=== PATIENT | male | born 1985 | race American Indian/Alaskan Native ===

== ENCOUNTER 2017-04-30 08:50 | Emergency (ER) | payer SELFPAY ==
[2017-04-30 09:06] VITALS: BP 127/81
[2017-04-30] MEDS ORDERED: FUL-GLO OP ONE (09:56)
[2017-04-30] MEDS ORDERED: TETRACAINE 0.5% OD ONE (09:57)
--- NOTE | 2017-04-30 12:09 | Emergency Department Report ---
Entered by VICKIE FARRELL, acting as scribe for KARLY PHILLIPS PA. ED Eye Problem HPI - General Chief complaint: Eye Problems Stated complaint: RIGHT EYE PAIN Time Seen by Provider: 04/30/17 09:54 Source: patient Mode of arrival: Ambulatory Limitations: No Limitations - History of Present Illness Initial comments: 32 y/o male with a PMHx of asthma and spontaneous pnuemothorax presents to the ED c/o gradually worsening right eye pain that began this morning. Rates pain a 6/10 in severity, which he describes as burning in quality. Aggravated with rubbing eye and alleviated with nothing. Associated symptom include foreign body sensation, but he denies blurry vision, right eye injury/trauma, foreign body getting into right eye, fever, chills, nausea, vomiting, and headache. Patient states he did not wake up with crust surrounding his right eye this morning. Notes that he wears glasses regularly. UTD with tetanus. DOUGLAS ALVARADO chief complaint: eye pain -: This morning Onset Description: gradual, unknown, awoke with symptoms Location: right eye Place: home If Injury: none Eye Symptoms: pain, foreign body sensation Severity scale (0 -10): 6 If Pain, Quality: burning Consistency: constant Associated Symptoms: none. denies: headache, neck pain, nausea/vomiting, cough , rhinorrhea, fever, shortness of breath Treatments Prior to Arrival: irrigated eye (right eye) - Related Data Patient Tetanus UTD: Yes Previous Rx's Medication Instructions Recorded Last Taken Type oxyCODONE /ACETAMINOPHEN [Percocet 1 tab PO Q4H PRN #30 tablet 08/03/14 Unknown Rx 5/325 mg] Cyclobenzaprine [Flexeril] 10 mg PO TID PRN #20 tablet 05/01/16 Unknown Rx Ibuprofen [Motrin 800 MG tab] 800 mg PO Q8HR PRN #30 tablet 05/01/16 Unknown Rx Gentamicin 0.3% Ophth Soln 2 drops OD Q8H #1 bottle 04/30/17 Unknown Rx Allergies Allergy/AdvReac Type Severity Reaction Status Date / Time No Known Allergies Allergy Verified 05/18/14 05:58 ED Review of Systems Comment: All other systems reviewed and negative Constitutional: denies: chills, fever Eyes: eye pain (right), other (patient believed that he got something in his eye with foreign body sensation to right eye). denies: eye discharge, vision change ENT: denies: ear pain, throat pain Respiratory: denies: cough, orthopnea, shortness of breath, SOB with exertion, SOB at rest, stridor, wheezing Cardiovascular: denies: chest pain, palpitations, dyspnea on exertion, orthopnea , edema, syncope, paroxysmal nocturnal dyspnea Endocrine: no symptoms reported Gastrointestinal: denies: abdominal pain, nausea, vomiting, diarrhea Musculoskeletal: denies: back pain, joint swelling, arthralgia Skin: denies: rash, lesions Neurological: denies: headache, weakness, numbness, paresthesias Psychiatric: denies: anxiety, depression Hematological/Lymphatic: denies: easy bleeding, easy bruising ED Past Medical Hx - Past Medical History Previous Medical History?: Yes Hx Hypertension: No Hx Congestive Heart Failure: No Hx Diabetes: No Hx Sickle Cell Disease: No Hx Asthma: Yes (No flare in 2 yrs, no inhaler use) Hx COPD: No Additional medical history: spontaneous pneumothorax - Surgical History Past Surgical History?: No - Family History Family history: no significant - Social History Smoking Status: Current Some Day Smoker Substance Use Type: None - Medications Home Medications: Home Medications Medication Instructions Recorded Confirmed Last Taken Type oxyCODONE /ACETAMINOPHEN [Percocet 1 tab PO Q4H PRN #30 tablet 08/03/14 Unknown Rx 5/325 mg] Cyclobenzaprine [Flexeril] 10 mg PO TID PRN #20 tablet 05/01/16 Unknown Rx Ibuprofen [Motrin 800 MG tab] 800 mg PO Q8HR PRN #30 tablet 05/01/16 Unknown Rx Gentamicin 0.3% Ophth Soln 2 drops OD Q8H #1 bottle 04/30/17 Unknown Rx ED Physical Exam - General Limitations: No Limitations General appearance: alert, in no apparent distress - Head Head exam: Present: atraumatic, normocephalic, normal inspection - Eye Eye exam: Present: normal appearance, PERRL, EOMI, other (mild erythema right sclera). Absent: scleral icterus, conjunctival injection, nystagmus, periorbital swelling, periorbital tenderness Pupils: Present: normal accommodation - Expanded Eye Exam Expanded Eyelids: Normal Inspection: Right (normal laterally) Pupils: Regular, Round: Bilateral, Reactive: Bilateral Sclera/Conjunctival: Normal Inspection: Bilateral Anterior chamber: Normal Inspection: Bilateral Posterior chamber: Normal Inspection: Bilateral, Papilledema: Bilateral, Hemorrhage: Bilateral, Retinal Detachment: Bilateral, AV Nicking: Bilateral Visual acuity (R) = 20/: 20 (20/20 both eyes) Visual acuity (L) = 20/: 20 With correction: No - ENT ENT exam: Present: normal exam, normal orophraynx, mucous membranes moist, TM's normal bilaterally, normal external ear exam - Expanded ENT Exam Expanded Ear exam: Present: normal external inspection Mouth exam: Present: normal external inspection, tongue normal. Absent: drooling, trismus, muffled voice, tongue elevation, laceration Teeth exam: Present: normal inspection Throat exam: Positive: normal inspection. Negative: tonsillar erythema, tonsillomegaly, tonsillar exudate, R peritonsillar mass, L peritonsillar mass - Neck Neck exam: Present: normal inspection, full ROM. Absent: tenderness, meningismus, lymphadenopathy - Respiratory Respiratory exam: Present: normal lung sounds bilaterally. Absent: respiratory distress, wheezes, rales, rhonchi, stridor, chest wall tenderness, accessory muscle use, decreased breath sounds - Cardiovascular Cardiovascular Exam: Present: regular rate, normal rhythm, normal heart sounds. Absent: systolic murmur, diastolic murmur - GI/Abdominal GI/Abdominal exam: Present: soft, normal bowel sounds. Absent: distended - Extremities Exam Extremities exam: Present: normal inspection, full ROM, normal capillary refill. Absent: tenderness, pedal edema, joint swelling, calf tenderness - Back Exam Back exam: Present: normal inspection, full ROM. Absent: tenderness - Neurological Exam Neurological exam: Present: alert, oriented X3, normal gait, reflexes normal. Absent: motor sensory deficit - Psychiatric Psychiatric exam: Present: normal affect, normal mood - Skin Skin exam: Present: warm, dry, intact, normal color. Absent: rash, cyanosis ED Course Vital Signs 04/30/17 09:04 Temperature 97.9 F Pulse Rate 62 Respiratory 18 Rate Blood Pressure 127/81 O2 Sat by Pulse 100 Oximetry - Reevaluation(s) Reevaluation #1: 04/30/17 12:03 Patient stable throughout ED course - Procedure Description Procedures done: With lamp test: Patient right eye examined under Deleon lamp. 2 drops of tetracaine instilled in right eye and fluorescein stain. Patient with small right corneal abrasion. Right eye flushed with sterile water. Tetanus vaccine is up-to-date. ED Medical Decision Making - Medical Decision Making ED course: Recent here complaining of right eye irritation and reports that he thinks he got something in his right eye. Exam test and reveal small corneal abrasion to the right eye. His tetanus shot is up-to-date. Diagnosis and treatment plan discussed with patient and he voiced understanding. Assessment/plan 1. Right corneal abrasion visual acuity is 20/20 all around 2. 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 ED Disposition Clinical Impression: Corneal abrasion, right Qualifiers: Encounter type: initial encounter Qualified Code(s): S05.01XA - Injury of conjunctiva and corneal abrasion without foreign body, right eye, initial encounter Right eye injury Qualifiers: Encounter type: initial encounter Qualified Code(s): S05.91XA - Unspecified injury of right eye and orbit, initial encounter Disposition: TO HOME OR SELFCARE Is pt being admited?: No Does the pt Need Aspirin: No Condition: Stable Instructions: Corneal Abrasion (ED) Additional Instructions: Please follow up with ophthalmology as instructed can wear sunglasses if you have sensitivity to send Prescriptions: Gentamicin 0.3% Ophth Soln 2 drops OD Q8H #1 bottle Referrals: REBECCA MANN MD [Staff Physician] - 2-3 Days Forms: Work/School Release Form(ED) This documentation as recorded by the JAMI soriano JASMINE,accurately reflects the service I personally performed and the decisions made by ,KARLY PHILLIPS PA.
== END 2017-04-30 12:17 | disposition home or self-care (01) ==
LOC: ED 08:50
DX: S05.01XA Injury of conjunctiva and corneal abrasion without foreign body, right eye, initial encounter (principal); J45.909 Unspecified asthma, uncomplicated; F17.210 Nicotine dependence, cigarettes, uncomplicated; X58.XXXA Exposure to other specified factors, initial encounter; Y93.89 Activity, other specified; Y92.89 Other specified places as the place of occurrence of the external cause; Y99.8 Other external cause status
CPT/HCPCS: 99283